=== PATIENT | female | born 1980 | race Two or more races ===

== ENCOUNTER 2024-10-18 16:01 | Emergency (ER) | payer OTHER ==
[~2024-10-18] VITALS: Ht 172.7 cm; Wt 99.8 kg
[2024-10-18 16:30] VITALS: TEMP 98
[2024-10-18 18:03] LABS: BASOPHILS # (AUTO) 0.1 K/uL (0.0-0.2); BASOPHILS % (AUTO) 1.4 % (0.0-2.0); EOSINOPHILS # (AUTO) 0.9 K/uL (0.0-0.7); EOSINOPHILS % (AUTO) 11.1 % (0.0-6.0); HEMATOCRIT 32 % (33-45); LYMPHOCYTES # (AUTO) 2.8 K/uL (0.8-4.8); LYMPHOCYTES % (AUTO) 33.5 % (20.0-44.0); MEAN CORPUSCULAR HEMOGLOBIN 21 PG (26.0-33.0); MEAN CORPUSCULAR HGB CONC 32 g/dl (31.0-36.0); MEAN CORPUSCULAR VOLUME 66 fL (82-100); MONOCYTES # (AUTO) 0.7 K/uL (0.1-1.30); NEUTROPHILS # (AUTO) 3.9 K/uL (1.8-8.9); PLATELET COUNT (AUTO) 370 K/uL (150-450); RED BLOOD CELL COUNT(AUTO) 4.79 MIL/uL (4.0-5.2); WHITE BLOOD COUNT (AUTO) 8.5 K/uL (4.3-11.0)
[2024-10-18 18:07] LABS: CALCIUM, SERUM 8.2 mg/dL (8.5-10.1); POTASSIUM 4.1 mmol/L (3.5-5.1)
[2024-10-18 18:19] LABS: ALBUMIN 3.1 g/dL (3.4-5.0); BILIRUBIN,DIRECT 0.1 mg/dL (0.0-0.2); BILIRUBIN,TOTAL 0.3 mg/dL (0.2-1.0); TOTAL PROTEIN, SERUM 7.1 g/dL (6.4-8.2)
[2024-10-18] MEDS ORDERED: clonazePAM 1 MG TABLET ONE (20:04)
[2024-10-18] MEDS: clonazePAM 1 MG TABLET PO ONE (20:07)
[2024-10-18] MEDS ORDERED: PROG100C15 PO (20:24)
[2024-10-18] MEDS ORDERED: ACETAMINOPHEN ES 500 MG TABLET ONE (20:28)
[2024-10-18] MEDS: ACETAMINOPHEN ES 500 MG TABLET PO ONE (20:30)
[2024-10-18 21:22] VITALS: BP 130/75; O2SAT 99
== END 2024-10-18 21:15 | disposition home or self-care (01) ==
LOC: ER 16:05
DX: N93.9 Abnormal uterine and vaginal bleeding, unspecified (principal); K62.5 Hemorrhage of anus and rectum; I10 Essential (primary) hypertension; R10.2 Pelvic and perineal pain; F41.9 Anxiety disorder, unspecified; Z79.890 Hormone replacement therapy; Z88.5 Allergy status to narcotic agent; Z60.2 Problems related to living alone
CPT/HCPCS: 36415; 76856-TC; 80048-TC; 80076-TC; 84702-TC; 85025-TC